=== PATIENT | male | born 1970 | race Two or more races ===

== ENCOUNTER 2019-09-16 09:56 | Inpatient (IN) | payer BC, OTHER ==
[~2019-09-16] VITALS: Ht 170.2 cm; Wt 98.9 kg
[2019-09-16] VITALS (19 sets, daily range): BP systolic 115–134; BP diastolic 71–89
[2019-09-16] MEDS ORDERED: INSULIN REGULAR (DRIP) 100 UNITS in SODIUM CHLORIDE 0.9% 99 ML IV ONE ×2 (10:15→10:45)
[2019-09-16] MEDS ORDERED: SODIUM CHLORIDE 0.9% 1000ML BAG (SEPSIS BOLUS) IV ONE (10:15)
[2019-09-16 10:37] LABS: BG BASE EXCESS -28.9 mmol/L (-2.0-2.0); BG CARBOXYHEMOGLOBIN 0.3 % (0.5-1.5); BG DEOXYHEMOGLOBIN 1.5 % (0.0-5.0); BG FRACTION INSPIRED OXYGEN 26; BG HCO3 ACT 2.2 mmol/L (22.0-26.0); BG METHEMOGLOBIN 0.5 % (0.0-1.5); BG OXYGEN SATURATION 98.5 % (92.0-98.5); BG OXYHEMOGLOBIN 97.7 % (94.0-97.0); BG PCO2 10.8 mmHg (35.0-45.0); BG PH 6.922 (7.350-7.450); BG PO2 156.1 mmHg (75.0-100.0); BG SAMPLE SITE RIGHT BRACHIAL; BG TOTAL HEMOGLOBIN 18.4 g/dL (12.0-18.0); BG VENT MODE NASAL CANNULA
[2019-09-16 10:39] LABS: HEMATOCRIT. 59.9 % (42.0-52.0); HEMOGLOBIN. 19.3 g/dL (14.0-18.0); MEAN CORPUSCULAR HEMOGLOBIN 31.4 pg (28.0-32.0); MEAN CORPUSCULAR VOLUME 97.5 fL (80.0-94.0); MEAN PLATELET VOLUME 7.2 fl (7.4-10.4); PLATELET 519 x1000/uL (130-400); RED BLOOD CELL COUNT 6.14 mill/uL (4.7-6.1); RED CELL DISTRIBUTION WIDTH 13.4 % (11.6-14.6)
[2019-09-16 10:43] LABS: CLARITY URINE CLOUDY (CLEAR); COLOR URINE YELLOW (YELLOW); KETONES URINE 4+ (NEGATIVE); LEUKOCYTE ESTERASE URINE NEGATIVE (NEGATIVE); NITRITE URINE NEGATIVE (NEGATIVE); OCCULT BLOOD URINE 1+ (NEGATIVE); PROTEIN URINE 2+ (NEGATIVE); SPECIFIC GRAVITY URINE 1.022 (1.005-1.030); UROBILINOGEN URINE 0.2 E.U./dL (0.2-1.0)
[2019-09-16 10:45] LABS: PROTHROMBIN TIME 10.2 sec (9.6-11.0)
[2019-09-16 10:46] LABS: CHLORIDE 100 mEq/L (98-107)
[2019-09-16 10:51] LABS: ETHANOL BLOOD < 10 mg/dL
[2019-09-16 10:54] LABS: CREATINE KINASE MB FRACTION 1.6 ng/mL (0.5-3.6)
[2019-09-16 10:55] LABS: CREATINE KINASE 36 IU/L (39-308)
[2019-09-16 10:56] LABS: BETA HYDROXYBUTYRATE 9.6 mMol/L (0.0-0.3)
[2019-09-16 11:00] LABS: *AMPHETAMINES SCREEN URINE NEGATIVE (NEGATIVE); *BARBITURATES SCREEN URINE NEGATIVE (NEGATIVE); *BENZODIAZEPINES SCREEN URINE NEGATIVE (NEGATIVE); *COCAINE SCREEN URINE NEGATIVE (NEGATIVE); METHADONE URINE SCREEN NEGATIVE (NEGATIVE); OPIATES URINE SCREEN NEGATIVE (NEGATIVE)
[2019-09-16 11:01] LABS: CANNABINOID URINE SCREEN NEGATIVE (NEGATIVE); PHENCYCLIDINE URINE SCREEN NEGATIVE (NEGATIVE)
[2019-09-16 11:11] LABS: PLATELET ESTIMATE INCREAS
[2019-09-16] MEDS ORDERED: SODIUM BICARBONATE 8.4% 1 MEQ/ML 50ML SYR IV ONE (11:30)
[2019-09-16] MEDS ORDERED: LEVOFLOXACIN 500MG PREMIX 100 ML IV ONE (11:30)
[2019-09-16] MEDS ORDERED: PIPERACILLIN/TAZ 3.375G PREMIX 50 ML IV ONE (11:30)
[2019-09-16] MEDS ORDERED: ACETAMINOPHEN 650MG SUPP PR PRN (12:45)
[2019-09-16] MEDS ORDERED: ONDANSETRON HCL 4MG/2ML INJ IV PRN (12:45)
[2019-09-16] MEDS ORDERED: INSULIN REGULAR (DRIP) 100 UNITS in SODIUM CHLORIDE 0.9% 100 ML IV SCH (12:45)
[2019-09-16] MEDS ORDERED: SODIUM BICARBONATE 8.4% 1 MEQ/ML 50ML SYR IV NR (14:15)
[2019-09-16] MEDS: PANTOPRAZOLE SODIUM 40 MG/VIAL IV SCH (14:30)
[2019-09-16] MEDS ORDERED: DEXTROSE 50% WATER 50ML SYRINGE IV PRN ×2 (15:15)
[2019-09-16] MEDS ORDERED: BLOOD SUGAR DIAGNOSTIC STRIP TEST SCH (15:15)
[2019-09-16] MEDS: SODIUM CHLORIDE 0.9% 1,000 ML IV SCH ×2 (15:17→22:59)
[2019-09-16] MEDS: BLOOD SUGAR DIAGNOSTIC STRIP TEST SCH ×9 (15:21→23:40)
[2019-09-16] MEDS: INSULIN REGULAR (DRIP) 100 UNITS in SODIUM CHLORIDE 0.9% 100 ML IV SCH ×2 (16:25→20:51)
[2019-09-16 19:32] LABS: CHLORIDE 116 mEq/L (98-107)
[2019-09-16 20:23] LABS: BG BASE EXCESS -17.1 mmol/L (-2.0-2.0); BG CARBOXYHEMOGLOBIN 0.1 % (0.5-1.5); BG DEOXYHEMOGLOBIN 1.2 % (0.0-5.0); BG FRACTION INSPIRED OXYGEN 28; BG HCO3 ACT 8.2 mmol/L (22.0-26.0); BG METHEMOGLOBIN 0.5 % (0.0-1.5); BG OXYGEN SATURATION 98.8 % (92.0-98.5); BG OXYHEMOGLOBIN 98.2 % (94.0-97.0); BG PCO2 20.6 mmHg (35.0-45.0); BG PH 7.216 (7.350-7.450); BG PO2 147.1 mmHg (75.0-100.0); BG SAMPLE SITE RIGHT RADIAL; BG TOTAL HEMOGLOBIN 17.7 g/dL (12.0-18.0); BG VENT MODE NASAL CANNULA
[2019-09-16 20:45] LABS: CHLORIDE 117 mEq/L (98-107)
[2019-09-16] MEDS: ENOXAPARIN 30MG/0.3ML SYR SUBCUT SCH (21:01)
[2019-09-17] VITALS (33 sets, daily range): BP systolic 119–142; BP diastolic 62–87
[2019-09-17] MEDS: BLOOD SUGAR DIAGNOSTIC STRIP TEST SCH ×17 (01:00→22:34)
[2019-09-17 01:14] LABS: CHLORIDE 122 mEq/L (98-107)
[2019-09-17 04:39] LABS: HEMATOCRIT. 49.8 % (42.0-52.0); MEAN CORPUSCULAR HEMOGLOBIN 31.7 pg (28.0-32.0); MEAN CORPUSCULAR VOLUME 92.9 fL (80.0-94.0); MEAN PLATELET VOLUME 6.9 fl (7.4-10.4); PLATELET 337 x1000/uL (130-400); RED BLOOD CELL COUNT 5.36 mill/uL (4.7-6.1); RED CELL DISTRIBUTION WIDTH 13.3 % (11.6-14.6)
[2019-09-17 04:56] LABS: CHLORIDE 122 mEq/L (98-107)
[2019-09-17 05:02] LABS: BETA HYDROXYBUTYRATE 3.8 mMol/L (0.0-0.3)
[2019-09-17] MEDS: SODIUM CHLORIDE 0.9% 1,000 ML IV SCH (05:42)
[2019-09-17 06:00] LABS: PLATELET ESTIMATE NORMAL
[2019-09-17] MEDS ORDERED: POTASSIUM CHLORIDE INJ 40 MEQ in DEXT 5% WATER 250 ML IV ONE ×2 (07:00→19:15)
[2019-09-17] MEDS: ENOXAPARIN 30MG/0.3ML SYR SUBCUT SCH ×2 (08:01→20:35)
[2019-09-17] MEDS: PANTOPRAZOLE SODIUM 40 MG/VIAL IV SCH (08:01)
[2019-09-17 09:30] LABS: CHLORIDE 121 mEq/L (98-107)
[2019-09-17] MEDS: DEXT 5%/0.45% NACL 1000ML 1,000 ML IV SCH ×2 (10:11→18:54)
[2019-09-17 12:28] LABS: CHLORIDE 122 mEq/L (98-107)
[2019-09-17] MEDS ORDERED: VANCOMYCIN 1500MG in DEXTROSE 5% WATER 250ML IV NR (12:30)
[2019-09-17] MEDS ORDERED: POTASSIUM CHLORIDE INJ 40 MEQ in DEXT 5% WATER 250 ML IV SCH (14:00)
[2019-09-17] MEDS: INSULIN REGULAR (DRIP) 100 UNITS in SODIUM CHLORIDE 0.9% 100 ML IV SCH (14:52)
[2019-09-17 15:35] LABS: CHLORIDE 120 mEq/L (98-107)
[2019-09-17 15:43] LABS: BETA HYDROXYBUTYRATE 2.9 mMol/L (0.0-0.3)
[2019-09-17 17:37] LABS: CHLORIDE 119 mEq/L (98-107)
[2019-09-17] MEDS: VANCOMYCIN 1250MG in DEXTROSE 5% WATER 250ML IV SCH (22:34)
[2019-09-18] VITALS (24 sets, daily range): BP systolic 112–139; BP diastolic 71–85
[2019-09-18] MEDS: BLOOD SUGAR DIAGNOSTIC STRIP TEST SCH ×9 (00:40→21:18)
[2019-09-18 00:46] LABS: CHLORIDE 117 mEq/L (98-107)
[2019-09-18] MEDS: INSULIN REGULAR (DRIP) 100 UNITS in SODIUM CHLORIDE 0.9% 100 ML IV SCH (02:11)
[2019-09-18 05:46] LABS: BASOPHILS % 0.5 % (0.0-2.0); HEMATOCRIT. 42.5 % (42.0-52.0); HEMOGLOBIN. 14.7 g/dL (14.0-18.0); LYMPHOCYTES % 8.3 % (20.0-50.0); MEAN CORPUSCULAR HEMOGLOBIN 31.2 pg (28.0-32.0); MEAN CORPUSCULAR VOLUME 90.1 fL (80.0-94.0); MEAN PLATELET VOLUME 7.1 fl (7.4-10.4); MONOCYTES % 9.5 % (2.0-8.0); NEUTROPHILS % 81.7 % (40.0-76.0); PLATELET 314 x1000/uL (130-400); RED BLOOD CELL COUNT 4.72 mill/uL (4.7-6.1); RED CELL DISTRIBUTION WIDTH 13.1 % (11.6-14.6)
[2019-09-18 05:59] LABS: CHLORIDE 116 mEq/L (98-107)
[2019-09-18] MEDS: VANCOMYCIN 1250MG in DEXTROSE 5% WATER 250ML IV SCH ×3 (06:01→21:17)
[2019-09-18] MEDS: DEXT 5%/0.45% NACL 1000ML 1,000 ML IV SCH (06:01)
[2019-09-18] MEDS: ENOXAPARIN 30MG/0.3ML SYR SUBCUT SCH ×2 (08:33→21:18)
[2019-09-18] MEDS: PANTOPRAZOLE SODIUM 40 MG/VIAL IV SCH (08:33)
[2019-09-18] MEDS ORDERED: POTASSIUM CHLORIDE INJ 40 MEQ in DEXT 5% WATER 250 ML IV SCH (09:00)
[2019-09-18] MEDS: CLOTRIMAZOLE 1% CREAM 30GM TOP SCH ×2 (10:54→21:18)
[2019-09-18] MEDS: NYSTATIN POWDER 15GM TOP SCH ×2 (12:57→16:32)
[2019-09-18 13:02] LABS: CHLORIDE 115 mEq/L (98-107)
[2019-09-18] MEDS ORDERED: DEXTROSE 50% WATER 50ML SYRINGE IV PRN (14:15)
[2019-09-18] MEDS: SODIUM CHLORIDE 0.45% 1,000 ML IV SCH (14:21)
[2019-09-18] MEDS ORDERED: INSULIN GLARGINE UD 100 UNITS/ML SYR SUBCUT SCH (15:00)
[2019-09-18] MEDS ORDERED: POTASSIUM CHLORIDE INJ 40 MEQ in SODIUM CHLORIDE 0.45% 250 ML IV SCH (16:00)
[2019-09-18] MEDS: INSULIN LISPRO 100 UNITS/ML SUBCUT SCH ×2 (17:37→21:18)
[2019-09-19] VITALS (25 sets, daily range): BP systolic 110–137; BP diastolic 62–86
[2019-09-19] MEDS: SODIUM CHLORIDE 0.45% 1,000 ML IV SCH ×2 (03:35→14:28)
[2019-09-19 05:53] LABS: BASOPHILS % 0.6 % (0.0-2.0); EOSINOPHILS % 0.1 % (0.0-5.0); HEMOGLOBIN. 14.3 g/dL (14.0-18.0); LYMPHOCYTES % 13.8 % (20.0-50.0); MEAN CORPUSCULAR HEMOGLOBIN 31.1 pg (28.0-32.0); MEAN CORPUSCULAR VOLUME 91.2 fL (80.0-94.0); MEAN PLATELET VOLUME 7.2 fl (7.4-10.4); MONOCYTES % 9.5 % (2.0-8.0); PLATELET 290 x1000/uL (130-400); RED BLOOD CELL COUNT 4.61 mill/uL (4.7-6.1); RED CELL DISTRIBUTION WIDTH 13.5 % (11.6-14.6)
[2019-09-19] MEDS: VANCOMYCIN 1250MG in DEXTROSE 5% WATER 250ML IV SCH (06:11)
[2019-09-19 06:12] LABS: CHLORIDE 111 mEq/L (98-107)
[2019-09-19 06:32] LABS: VANCOMYCIN TROUGH 23.1 ug/mL (5.0-10.0)
[2019-09-19] MEDS: BLOOD SUGAR DIAGNOSTIC STRIP TEST SCH ×4 (07:17→21:15)
[2019-09-19] MEDS: PANTOPRAZOLE SODIUM 40 MG/VIAL IV SCH (07:57)
[2019-09-19] MEDS: ENOXAPARIN 30MG/0.3ML SYR SUBCUT SCH ×2 (07:57→21:15)
[2019-09-19] MEDS: INSULIN LISPRO 100 UNITS/ML SUBCUT SCH ×8 (07:57→21:14)
[2019-09-19] MEDS: NYSTATIN POWDER 15GM TOP SCH ×3 (07:58→17:51)
[2019-09-19] MEDS: CLOTRIMAZOLE 1% CREAM 30GM TOP SCH ×2 (07:58→21:15)
[2019-09-19] MEDS ORDERED: INSULIN GLARGINE UD 100 UNITS/ML SYR SUBCUT SCH (10:00)
[2019-09-19 10:42] LABS: PHOSPHORUS 1.5 mg/dL (2.5-4.9)
[2019-09-19] MEDS: VANCOMYCIN 1 G PREMIX 200 ML IV SCH ×2 (12:50→21:15)
[2019-09-19] MEDS ORDERED: POTASSIUM PHOS,M-BASIC-D-BASIC 30 MMOL in DEXT 5% WATER 500 ML IV NR (13:30)
[2019-09-19] MEDS ORDERED: SODIUM CHLORIDE 0.45% IV SCH (14:00)
[2019-09-19] MEDS ORDERED: VANCOMYCIN IV SCH (14:00)
[2019-09-19 16:09] LABS: CHLORIDE 108 mEq/L (98-107)
[2019-09-19] MEDS ORDERED: SULFAMETHOXAZOLE/TRIMETHOPRIM 400/80MG TAB PO SCH (21:00)
[2019-09-20] VITALS (11 sets, daily range): BP systolic 111–137; BP diastolic 72–103
[2019-09-20] MEDS: VANCOMYCIN 1 G PREMIX 200 ML IV SCH (05:04)
[2019-09-20 05:30] LABS: BASOPHILS % 0.4 % (0.0-2.0); EOSINOPHILS % 0.5 % (0.0-5.0); HEMATOCRIT. 38.7 % (42.0-52.0); HEMOGLOBIN. 13.4 g/dL (14.0-18.0); LYMPHOCYTES % 14.1 % (20.0-50.0); MEAN CORPUSCULAR HEMOGLOBIN 31.5 pg (28.0-32.0); MEAN CORPUSCULAR VOLUME 90.8 fL (80.0-94.0); MEAN PLATELET VOLUME 6.8 fl (7.4-10.4); MONOCYTES % 9.6 % (2.0-8.0); NEUTROPHILS % 75.4 % (40.0-76.0); PLATELET 284 x1000/uL (130-400); RED BLOOD CELL COUNT 4.26 mill/uL (4.7-6.1); RED CELL DISTRIBUTION WIDTH 13.4 % (11.6-14.6)
[2019-09-20] MEDS: SODIUM CHLORIDE 0.45% 1,000 ML IV SCH (05:47)
[2019-09-20 05:51] LABS: CHLORIDE 105 mEq/L (98-107)
[2019-09-20] MEDS ORDERED: ACETAMINOPHEN 325MG TABLET PO PRN (06:00)
[2019-09-20] MEDS: BLOOD SUGAR DIAGNOSTIC STRIP TEST SCH (08:19)
[2019-09-20] MEDS: PANTOPRAZOLE SODIUM 40 MG/VIAL IV SCH (08:22)
[2019-09-20] MEDS: NYSTATIN POWDER 15GM TOP SCH (08:22)
[2019-09-20] MEDS: ENOXAPARIN 30MG/0.3ML SYR SUBCUT SCH (08:22)
[2019-09-20] MEDS: CLOTRIMAZOLE 1% CREAM 30GM TOP SCH (08:22)
[2019-09-20] MEDS: INSULIN LISPRO 100 UNITS/ML SUBCUT SCH ×2 (08:23→08:24)
== END 2019-09-20 09:30 | disposition short-term general hospital (02) | DRG 637 ==
LOC: EDBEDREQ 10:12 → ER 10:17 → CVICU 12:14 → EDBEDREQ 12:21 → ENRESERV 13:34
PROVIDERS: ADMIT Hospitalist; ATTEND Hospitalist
DX: E11.10 Type 2 diabetes mellitus with ketoacidosis without coma (principal); G92 Toxic encephalopathy; E87.1 Hypo-osmolality and hyponatremia; L03.311 Cellulitis of abdominal wall; E46 Unspecified protein-calorie malnutrition; E87.6 Hypokalemia; E86.0 Dehydration; E83.39 Other disorders of phosphorus metabolism; Z91.19 Patient's noncompliance with other medical treatment and regimen; Z88.8 Allergy status to other drugs, medicaments and biological substances; Z68.34 Body mass index [BMI] 34.0-34.9, adult
CPT/HCPCS: 36415; 36600; 71045; 74176; 80048; 80053; 80202; 80305; 80320; 81003; 82010; 82375; 82550; 82553; 82805; 82962; 83036; 83605; 83735; 83880; 83930; 83935; 84100; 84145; 84484; 85025; 87070; 87075; 87077; 87186; 93005; 93306; 93970; 96361; 96365; 96375; 99291; C9113; J1650; J1815; J1956; J2543; J3370; J3480; J3490; J7030; J7050; J7060; A4315; G0480